=== PATIENT | female | born 1995 | race Caucasian/White ===

== ENCOUNTER 2023-08-16 16:09 | Emergency (ER) | payer OTHER, SELFPAY ==
[2023-08-16 16:10] VITALS: BP 121/90; PULSE 111; RESP 16; TEMP 36.8; O2SAT 97; BMI 26.4
--- NOTE | 2023-08-16 16:28 | EDS_ITS ---
HPI History of Present Illness Chief Complaint: Abn Labs Narrative Narrative: 28-year-old female presents with her for abnormal laboratory work. She relates history of heart and liver transplant for genetic reasons at the [facility] approximately 5 weeks ago. She had laboratory work drawn earlier this morning. She states she has been feeling well otherwise. She received a phone call and was told that she needs a magnesium infusion and that her magnesium was low at 1.3. She states she already supplements with oral magnesium and was told by the transplant team that they can not give her a larger amount of oral magnesium and that she needs to have an infusion. She denies any fevers or chills, no chest pain or shortness of breath, no other symptoms. PFSH PFS Home Medications Unobtainable 08/16/23 [History Last Taken Unknown] Allergy/AdvReac Type Severity Reaction Status Date / Time No Known Allergies Allergy Verified 08/16/23 16:14 Surgical History (Updated 08/16/23 @ 21:38 by Robert Parks MD) S/P liver transplant Status post heart transplant Social History Smoking Status: Never smoker ROS ROS ED ROS Narrative Constitutional: No fever, no chills. HEENT: No sore throat. No neck pain. No loss of vision. No rhinorrhea. Cardiovascular: No chest pain. No palpitations. No pedal edema. Respiratory: No cough, no shortness of breath. Abdominal: No abdominal pain. No nausea. No vomiting. Genitourinary: No dysuria. No hematuria. Musculoskeletal: No myalgias. No arthralgias. Neurologic: No headaches. No dizziness. No lightheadedness. Skin: No rash. No change in color. Psychiatric: No depression. No anxiety. EXAM Physical Exam Narrative Exam Narrative: Afebrile. Vital signs noted. HEENT: Normocephalic. Atraumatic. PERRL, EOMI. Neck soft and supple. No point tenderness or step off. Cardiovascular: Positive tachycardia, no rubs, or gallops appreciated. Respiratory: No tachypnea. Lungs clear to auscultation bilaterally. Gastrointestinal: Abdomen soft, nontender, with normoactive bowel sounds. No rebound or guarding. Neurological: Awake. Alert. Nonfocal, nonlateralizing. Ambulatory in ED to bathroom without difficulty. Skin: No rash. Normal color. No pallor. Musculoskeletal: No pedal edema. Full range of motion extremities. Const Vital Signs: 08/16/23 16:10 08/16/23 17:10 08/16/23 18:10 Temperature 98.2 F Temperature Source Oral Pulse Rate 111 H 101 H Respiratory Rate 16 23 H Respiratory Effort Normal Non-Labored Respiratory Pattern Normal Blood Pressure 121/90 H 111/88 H Blood Pressure Mean 100 95 Pulse Ox 97 98 Oxygen Delivery Method Room Air Room Air 08/16/23 20:00 Temperature Temperature Source Pulse Rate 101 H Respiratory Rate 16 Respiratory Effort Respiratory Pattern Blood Pressure 116/87 H Blood Pressure Mean 96 Pulse Ox 96 Oxygen Delivery Method Room Air MDM MDM MDM Narrative Medical decision making narrative: We will recheck her BMP and magnesium today. Should she have hypomagnesemia, I will infuse her. Do not really feel differential diagnosis is applicable as she is here for magnesium infusion. I reviewed her laboratory work and her BMP shows BUN of 17 and creatinine 1.12. Her magnesium is low at 1.0. She will be infused 4 g of magnesium given her hypomagnesemia. I did check on her at approximately 9:50 PM and she was awake and alert, and did not appear hyperreflexive. At this point in time, after her infusion, I do feel that she can be discharged to follow-up with the transplant team for recheck in the next few days. She states she has more lab work due on . I feel I have given her the maximum dose of 4 g today over 4 hours so that she does not require recheck prior to discharge. She can continue her supplementation orally as well. I do not feel she requires observation at this time. Disposition is discharged home in stable condition. Lab Data Attestation: I reviewed the patient's lab results. Labs: Laboratory Results - last 24 hr 08/16/23 17:00 Sodium 138 Potassium 3.9 Chloride 99 Carbon Dioxide 30.0 Anion Gap 9 BUN 17 Creatinine 1.12 H Estim Creat Clear Calc 60.76 Est GFR (MDRD) Af Amer 73 Est GFR (MDRD) Non-Af 61 BUN/Creatinine Ratio 15.2 Glucose 189 H Calcium 8.7 Magnesium 1.0 L Discharge Plan Triage Chief Complaint: Abn Labs ED Provider: Robert Parks Dx/Rx/DC Orders Clinical Impression: History of liver transplant, History of heart transplant, Hypomagnesemia Instructions: Hypomagnesemia Dc Prescriptions: No Action Unobtainable Primary Care Provider: Care Physician,No Primary Referrals: NOT,DEFINED [Non-Staff] - Activity Restrictions/Additional Instructions: Follow-up with your primary care physician and transplant team in the next few days. You will most likely require another magnesium recheck. Disposition Disposition: Home, Self Care
[2023-08-16 17:22] LABS: Anion Gap 9 (5-15); BUN 17 mg/dL (7-18); BUN/Creat Ratio 15.2 RATIO (10-20); Calcium,Total 8.7 mg/dL (8.5-10.1); Chloride 99 mmol/L (98-107); Creatinine, Serum 1.12 mg/dL (0.55-1.02); EST Glomerular Filtration Rate 61 mL/min (>60); Est Glom Filt Rate - Afr Amer 73 mL/min (>60); Estimated Creatinine Clearance 60.76 ml/min; Glucose 189 mg/dL (74-106); Potassium 3.9 mmol/L (3.5-5.1); Sodium Level 138 mmol/L (136-145)
[2023-08-16 18:10] VITALS: BP 111/88; PULSE 101; RESP 23; O2SAT 98
[2023-08-16] MEDS: Magnesium Sulfate 4gm/100mL 4 GM/100 ML IV.SOLN. IV (18:33)
[2023-08-16 20:00] VITALS: BP 116/87; PULSE 101; RESP 16; O2SAT 96
[2023-08-16 22:00] VITALS: BP 114/88; PULSE 101; RESP 16; RESP 19; O2SAT 93; O2SAT 95
== END 2023-08-16 22:40 | disposition home or self-care (01) ==
PROVIDERS: Emergency Provider Emergency Medicine; Visit Provider Emergency Medicine
DX: E83.42 Hypomagnesemia (principal); Z94.1 Heart transplant status; Z94.4 Liver transplant status
CPT/HCPCS: 80048; 83735; 96365; 96366; 99283; A4216